=== PATIENT | male | born 1990 | race Caucasian/White ===

== ENCOUNTER 2017-01-24 07:08 | Day surgery (SDC) | payer OTHER ==
[2017-01-24 08:03] VITALS: BP 110/68; BMI 33.6
[2017-01-24] MEDS ORDERED: TYLENOL W/CODEI1 TAB PO (10:55)
--- NOTE | 2017-01-25 09:45 | OP ---
PATIENT NAME: CHARMAINE RODRIGUEZ MEDICAL RECORD: [id number] :90 LOCATION:[facility] ADMISSION DATE: SURGEON: JUDIT DAVIS MD DATE OF OPERATION: 01/24/2017 SURGEON: Judit Davis MD ANESTHESIA: General anesthesia by Mikey Meléndez CRNA. PREOPERATIVE DIAGNOSIS: Phimosis. PROCEDURE: Circumcision. SPECIMEN: Foreskin of the penis. BLOOD LOSS: Minimal. CLINICAL HISTORY: This is a 26-year-old male, who has noticed increasing contracture of his penile foreskin along with episodes of skin cracking and inflammation. Over the time, the opening has become tighter and tighter and now he cannot fully retract the foreskin to clean underneath. This is phimosis. He comes now to have circumcision performed. He is not allergic to any medications and he was given [facility] hospice care transitions coordinator to the OR. DESCRIPTION OF PROCEDURE: The patient was given induction of general anesthesia. He was then shaved, prepped and draped. A dorsal penile nerve block was given using 0.25% Marcaine without epinephrine. This was placed on either side of the dorsal nerve of the penis at the base of the penis and then a circumferential block was also made around the base of the penis. We then put curved mosquitoes on either side of the dorsal midline of the penis. A straight clamp was used to crush the midline of the dorsal foreskin of the penis. The crushing was to promote hemostasis. Metzenbaum scissors were then used to create a dorsal slit. We continued lengthening the dorsal slit proximally until we were able to fully retract the foreskin and expose the glans penis. We then used Betadine to clean the undersurface of the foreskin as well as the glans penis. A 2-0 nylon suture was placed through the glans penis for traction. The penis was put under traction so that it would replicate the maximal length during erection. The mucosal portion of the penile skin was marked with a marking pen 5mm proximal to the adame of the glans. A corresponding location on the cutaneous foreskin was marked with the foreskin placed back into the forward position. These 2 incisions were made using a 15 blade. He has tethering of the frenulum of the penis also. The tethered area was divided using the 15 blade. Once these incisions were made, the dartos fascia was by dissection with Metzenbaum scissors. This allowed us to send the foreskin specimens off to pathology in formalin. We then used cautery to stop any bleeding within the dartos layer. The skin was reapproximated using simple interrupted 4-0 Vicryl. A Vaseline gauze was placed around the incision line and a dressing of Kerlix was wrapped around the penis shaft. The patient will be awakened and brought to the recovery room. He will be going home with a script for Tylenol No. 3. I will see him in followup next week to check on wound healing. TRANSINT:[id number] Voice Confirmation ID: [id number] DOCUMENT ID: [id number] OPERATIVE REPORT [id number] PRICOP,CHARMAINE DAVIS, JUDIT Mcnair MD at 0945 CC: [id number] DICTATION DATE: 01/24/17 1014 MECHANICAL MANUFACTURING TECHNICIAN: 01/24/17 1153 [facility] 01/24/17 [id number] [place] [address]
== END 2017-01-24 11:45 | disposition home or self-care (01) ==
LOC: D.OPS 07:08 → D.PAN 09:00 → D.OPS 09:10 → D.PAN 09:10 → D.OPS 10:45
DX: N47.1 Phimosis (principal); K21.9 Gastro-esophageal reflux disease without esophagitis; E66.01 Morbid (severe) obesity due to excess calories; Z68.33 Body mass index [BMI] 33.0-33.9, adult; Z01.812 Encounter for preprocedural laboratory examination